=== PATIENT | female | born 1970 | race Caucasian/White ===

== ENCOUNTER 2023-10-14 07:58 | Emergency (ER) | payer BC, OTHER ==
[2023-10-14 08:03] VITALS: BP 156/87; PULSE 83; RESP 18; TEMP 97.9; BMI 26.6
[2023-10-14] MEDS: AMOX TR/POT CLAV 875MG/125MG TABLETS (FP) PO ONE (10:13)
[2023-10-14] MEDS ORDERED: AMOX TR/POT CLAV 875MG/125MG TABLETS (FP) ONE (10:13)
== END 2023-10-14 10:18 | disposition home or self-care (01) ==
LOC: JER 07:58
DX: K11.20 Sialoadenitis, unspecified (principal); K08.89 Other specified disorders of teeth and supporting structures; M27.2 Inflammatory conditions of jaws
CPT/HCPCS: 99284-25